=== PATIENT | male | born 1995 | race African-American/Black ===

== ENCOUNTER 2019-12-07 10:28 | Emergency (ER) | payer MEDICAID ==
[2019-12-07 10:41] VITALS: BP 129/87
--- NOTE | 2019-12-07 11:04 | ED Physician Documentation ---
PD HPI URI - Stated complaint Stated Complaint: CONGESTION/COUGH/RUNNY NOSE - Chief complaint Chief Complaint: Resp - History obtained from History obtained from: Patient - History of Present Illness Timing - onset: How many days ago (5) Timing duration: Days (5) Timing details: Gradual onset Associated symptoms: Nasal congestion, Rhinorrhea, Sore throat, Dry cough, Chest pain, Dyspnea. 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 He has been coughing not bringing anything up it feels like there is something rattling around in the left lung. He has not documented any fevers but he feels achy and sore. Appare ntly there are 8 people at [facility] who are residents that are sick and the facility is on quarantine. Review of Systems Constitutional: reports: Chills. denies: Fever Nose: reports: Rhinorrhea / runny nose, Congestion Throat: reports: Sore throat Respiratory: reports: Dyspnea, Cough GI: denies: Nausea, Vomiting PD PAST MEDICAL HISTORY - Past Medical History Past Medical History: No Cardiovascular: None Respiratory: Asthma Neuro: None Endocrine/Autoimmune: None GI: None : None HEENT: None Psych: None Musculoskeletal: None Derm: None - Past Surgical History Past Surgical History: No - Present Medications Home Medications: Ambulatory Orders Medication Instructions Recorded Confirmed No Known Home Medications 12/07/19 12/07/19 - Allergies Allergies/Adverse Reactions: Allergies Allergy/AdvReac Type Severity Reaction Status Date / Time No Known Drug Allergies Allergy Verified 12/07/19 10:38 - Social History Does the pt smoke?: No Smoking Status: Never smoker Does the pt drink ETOH?: No Does the pt have substance abuse?: No - Immunizations Immunizations are current?: Yes - POLST Patient has POLST: No PD ED PE NORMAL - Vitals Vital signs reviewed: Yes - General General: Alert and oriented X 3, No acute distress, Well developed/nourished - HEENT HEENT: Atraumatic, PERRL, EOMI, Moist mucous membranes, Pharynx benign, Other (Cerumen impaction bilaterally) - Neck Neck: Supple, no meningeal sign, No adenopathy - Cardiac Cardiac: RRR, No murmur - Respiratory Respiratory: No respiratory distress, Clear bilaterally - Derm Derm: Normal color, Warm and dry - Neuro Neuro: Alert and oriented X 3, No motor deficit, No sensory deficit, Normal speech Results - Vitals Vitals: Vital Signs - 24 hr 12/07/19 10:38 Temperature 37.3 C Heart Rate 100 Respiratory 18 Rate Blood Pressure 129/87 H O2 Saturation 100 Oxygen O2 Source Room air - Labs Labs: Laboratory Tests 12/07/19 12/07/19 11:09 11:09 Influenza A (Rapid) Negative Influenza B (Rapid) Negative RSV Rapid Negative PD MEDICAL DECISION MAKING - ED course Complexity details: reviewed results ED course: Influenza and RSV screens are negative. The patient's had a symptomatic upper respiratory infection and working in a halfway facility. I have run Covid 19 screening and instructed them that they are to be in self-isolation at home and not at work until the results of this test are known. Departure - Departure Disposition: 01 Home, Self Care Clinical Impression: Upper respiratory tract infection Qualifiers: URI type: unspecified viral URI Qualified Code(s): J06.9 - Acute upper respiratory infection, unspecified Condition: Good Instructions: ED Viral Syndrome Follow-Up: [facility] [Provider Group] Comments: Take [id number] Tylenol, ibuprofen and cold medications for your symptoms. You are to self isolate at home with no contact outside of the immediate family that you live with. You may not return to work until the results of your coronavirus screening are known. At this point in time that could be anywhere from 4 to 12 days before we have the results. Return for reevaluation only if you are experiencing severe respiratory distress. Forms: Activity restrictions
[2019-12-07 11:32] LABS: RESPIRATORY SYNCYTIAL VIRUS Negative (Negative)
== END 2019-12-07 12:41 | disposition home or self-care (01) ==
LOC: ED 10:28
DX: J06.9 Acute upper respiratory infection, unspecified (principal)
CPT/HCPCS: 81599; 87275; 87276; 87280; 99283; 99284

== ENCOUNTER 2020-10-05 14:17 | Emergency (ER) | payer MEDICAID ==
--- NOTE | 2020-10-05 14:32 | ED Physician Documentation ---
PD HPI HEENT - Stated complaint Stated Complaint: CONGESTION/LT SIDE PX - Chief complaint Chief Complaint: Resp - History obtained from History obtained from: Patient - Additional information Additional information: Productive cough with mild shortness of breath and feeling like the left lung is congested for about 3 weeks. Review of Systems Constitutional: denies: Fever, Chills, Myalgias Nose: denies: Rhinorrhea / runny nose Throat: denies: Sore throat PD PAST MEDICAL HISTORY - Past Medical History Cardiovascular: None Respiratory: Asthma Neuro: None Endocrine/Autoimmune: None GI: None : None HEENT: None Psych: None Musculoskeletal: None Derm: None - Past Surgical History Past Surgical History: No - Present Medications Home Medications: Ambulatory Orders Medication Instructions Recorded Confirmed Albuterol Sulf [Ventolin Hfa 1 - 2 puffs INH Q4HR PRN #1 inhaler 10/05/20 Inhaler] guaiFENesin/CODEINE [Robitussin AC] 5 - 10 ml PO Q6H PRN #120 ml 10/05/20 - Allergies Allergies/Adverse Reactions: Allergies Allergy/AdvReac Type Severity Reaction Status Date / Time No Known Drug Allergies Allergy Verified 10/05/20 14:21 - Social History Does the pt smoke?: No Smoking Status: Never smoker Does the pt drink ETOH?: No Does the pt have substance abuse?: No - Immunizations Immunizations are current?: Yes - POLST Patient has POLST: No PD ED PE NORMAL - Vitals Vital signs reviewed: Yes - General General: Alert and oriented X 3, No acute distress - Cardiac Cardiac: RRR, No murmur - Respiratory Respiratory: No respiratory distress, Clear bilaterally - Abdomen Abdomen: Non tender - Neuro Neuro: Alert and oriented X 3, Normal speech Results - Vitals Vitals: Vital Signs - 24 hr 10/05/20 14:18 Temperature 36.5 C Heart Rate 101 H Respiratory 20 Rate Blood Pressure 145/85 H O2 Saturation 100 Oxygen O2 Source Room air - Rads (name of study) 2v chest Radiology: EMP read contemporaneously (Normal) Departure - Departure Disposition: Home, Self Care Clinical Impression: Viral bronchitis Condition: Good Record reviewed to determine appropriate education?: Yes Instructions: ED Upper Resp Infec No Abx Tx Prescriptions: Albuterol Sulf [Ventolin Hfa Inhaler] 1 - 2 puffs INH Q4HR PRN #1 inhaler PRN Reason: Shortness Of Air/Wheezing guaiFENesin/CODEINE [Robitussin AC] 5 - 10 ml PO Q6H PRN #120 ml PRN Reason: Cough Comments: Follow-up with your doctor in about a week for recheck. Return for new or worsening symptoms. Avoid all inhaled substances, vaping/marijuana etc.
--- NOTE | 2020-10-05 14:47 | XRAY Report ---
PROCEDURE: Chest 2 View X-Ray INDICATIONS: cough TECHNIQUE: 2 view(s) of the chest. COMPARISON: None. FINDINGS: Surgical changes and devices: None. Lungs and pleura: No pleural effusions or pneumothorax. Lungs are clear. Mediastinum: Mediastinal contours are normal. Heart size is normal. Bones and chest wall: No suspicious bony abnormalities. Soft tissues appear unremarkable. IMPRESSION: No acute cardiopulmonary disease process. Reviewed by: Lu Tavera MD, PhD on 10/05/2020 1:46 PM [facility] Approved by: Lu Tavera MD, PhD on 10/05/2020 1:46 PM [facility] Station ID: [id number]
[2020-10-05 15:07] VITALS: BP 139/81
== END 2020-10-05 15:06 | disposition home or self-care (01) ==
LOC: ED 14:17
DX: J20.8 Acute bronchitis due to other specified organisms (principal); B97.89 Other viral agents as the cause of diseases classified elsewhere
CPT/HCPCS: 99283; 99284

== ENCOUNTER 2021-02-22 08:04 | Emergency (ER) | payer OTHER, MEDICAID ==
[2021-02-22 08:11] VITALS: BP 141/79
[2021-02-22] MEDS ORDERED: TETANUS/DIPHTHERIA/PERTUSSIS 0.5 ML SYRINGE IM ONE (09:23)
--- NOTE | 2021-02-22 09:23 | ED Physician Documentation ---
PD HPI UPPER EXT INJURY - Stated complaint Stated Complaint: LT THUMB LAC - Chief complaint Chief Complaint: Laceration - History obtained from History obtained from: Patient - History of Present Illness Location: Left, Finger (thumb) Type of injury: Laceration Where injury occurred: Work Pain level max: 2 Pain level now: 1 Improved by: Rest Worsened by: Moving - Additonal information Additional information: 25-year-old male presents to the emergency department for left thumb laceration. This occurred while at work today. Excellently cut with a knife. Better with pressure, worse with moving. Is not on any blood thinners. Unknown last tetanus. Patient is right-handed Review of Systems Constitutional: denies: Fever Neurologic: denies: Focal weakness, Numbness PD PAST MEDICAL HISTORY - Past Medical History Past Medical History: Yes Cardiovascular: None Respiratory: Asthma Neuro: None Endocrine/Autoimmune: None GI: None : None HEENT: None Psych: None Musculoskeletal: None Derm: None - Past Surgical History Past Surgical History: No - Present Medications Home Medications: Ambulatory Orders Medication Instructions Recorded Confirmed No Known Home Medications 02/22/21 02/22/21 - Allergies Allergies/Adverse Reactions: Allergies Allergy/AdvReac Type Severity Reaction Status Date / Time No Known Drug Allergies Allergy Verified 02/22/21 08:11 - Social History Does the pt smoke?: No Smoking Status: Never smoker Does the pt drink ETOH?: No Does the pt have substance abuse?: No - Immunizations Immunizations are current?: Yes - POLST Patient has POLST: No PD ED PE NORMAL - Vitals Vital signs reviewed: Yes - General General: Alert and oriented X 3, No acute distress - Derm Derm: Warm and dry - Extremities Extremities: Other (Small laceration to the distal aspect of the left thumb, this does involve about one fourth of the distal thumbnail. No active bleeding. Approximately 1.2 cm in total length. Neurovascular intact) - Neuro Neuro: Alert and oriented X 3 Results - Vitals Vitals: Vital Signs - 24 hr 02/22/21 08:08 Temperature 36.4 C L Heart Rate 92 Respiratory 16 Rate Blood Pressure 141/79 H O2 Saturation 97 Oxygen O2 Source Room air Procedures - Laceration (location) Left thumb Length in cm: 1.2 Wound type: Curved, Flap, Superficial Neurovascular status: Sensory intact, Motor intact, Vascular intact Tendon involvement: Tendon intact Wound preparation: Irrigated copiously NS Skin layer closure: Dermabond Other: Patient tolerated well, No complications, Neurovascular intact, Dressing applied, Tetanus booster given PD MEDICAL DECISION MAKING - ED course Complexity details: considered differential, d/w patient ED course: Patient with a left thumb laceration. Mostly superficial. Wound was cleansed, closed with Dermabond, the slight laceration through the distal nail was also closed with Dermabond. A splint was placed to protect the area from accidental bumping today. Tdap given. Patient counseled regarding signs and symptoms for which I believe and urgent re-evaluation would be necessary. Patient with good understanding of and agreement to plan and is comfortable going home at this time This document was made in part using voice recognition software. While efforts are made to proofread this document, sound alike and grammatical errors may occur. Departure - Departure Disposition: 01 Home, Self Care Clinical Impression: Thumb laceration Qualifiers: Encounter type: initial encounter Damage to nail status: with damage Foreign body presence: without foreign body Laterality: left Qualified Code(s): S61.112A - Laceration without foreign body of left thumb with damage to nail, initial encounter Condition: Good Instructions: ED Laceration Ext Skin Glue Follow-Up: your,doctor in 1 week for wound check [Other] Comments: Keep the wound clean. Return if you worsen. Keep the wound covered while at work. Do not apply ointment as this may dissolve the glue. You may remove the splint in 1 to 2 days.
== END 2021-02-22 09:38 | disposition home or self-care (01) ==
LOC: ED 08:04
DX: S61.112A Laceration without foreign body of left thumb with damage to nail, initial encounter (principal); W26.0XXA Contact with knife, initial encounter; Y99.0 Civilian activity done for income or pay; Z23 Encounter for immunization
CPT/HCPCS: 12001; 90471; 99282; 99283

== ENCOUNTER 2021-07-05 05:37 | Emergency (ER) | payer MEDICAID ==
[2021-07-05 05:45] VITALS: BP 142/86
--- NOTE | 2021-07-05 05:49 | ED Physician Documentation ---
PD HPI HEENT - Stated complaint Stated Complaint: EAR PRESSURE - Chief complaint Chief Complaint: Heent - History obtained from History obtained from: Patient - History of Present Illness Timing - onset: How many days ago (3) Timing - details: Gradual onset Pain level max: 0 Pain level now: 0 Location: Right ear, Left ear Similar symptoms before: Has not had sx before Recently seen: Not recently seen - Additional information Additional information: c/o 3 days of both ears are clogged (per patient). denies pain. denies fever. decreased hearing bilaterally Review of Systems Constitutional: denies: Fever Ears: reports: Loss of hearing (decreased bilaterally). denies: Ear pain, Drainage/discharge, Tinnitus/ringing Nose: reports: Congestion (mild) PD PAST MEDICAL HISTORY - Past Medical History Past Medical History: Yes Cardiovascular: None Respiratory: Asthma, Other Neuro: None Endocrine/Autoimmune: None GI: None : None HEENT: None Psych: None Musculoskeletal: None Derm: None Other Past Medical History: Bronchitis - Past Surgical History Past Surgical History: No - Present Medications Home Medications: Ambulatory Orders Medication Instructions Recorded Confirmed No Known Home Medications 02/22/21 07/05/21 - Allergies Allergies/Adverse Reactions: Allergies Allergy/AdvReac Type Severity Reaction Status Date / Time No Known Drug Allergies Allergy Verified 07/05/21 05:45 - Social History Does the pt smoke?: No Smoking Status: Never smoker Does the pt drink ETOH?: No Does the pt have substance abuse?: No - Immunizations Immunizations are current?: Yes - POLST Patient has POLST: No PD ED PE NORMAL - Vitals Vital signs reviewed: Yes - General General: Alert and oriented X 3, No acute distress, Well developed/nourished PD ED PE EXPANDED - HEENT HEENT: Other (bilateral ear canal cerumen impaction) Results - Vitals Vitals: Oxygen O2 Source Room air PD MEDICAL DECISION MAKING - ED course Complexity details: considered differential, d/w patient ED course: bilateral external auditory canals irrigated with warm tap water using 50cc syringe with attached 18g angiocath. extensive amount of cerumen removed, with both sides yielding in essence a wax cast of the external auditory canals. reexamination reveals normal and intact TM bilaterally, normal right external auditory canal, trace erythema left external auditory canal (limited to small patch along anterosuperior area). symptoms resolved upon removal of the cerumen Departure - Departure Disposition: 01 Home, Self Care Clinical Impression: Impacted cerumen of both ears Condition: Good Instructions: ED Wax Ear Home Removal, ED Earwax Removal Comments: Instructions for home ear wax removal have been provided only for your reference for future episodes should you have them. I was able to completely clear both ear canals of all cerumen (wax) and thus you do not need to use the product(s) referred to in the ear wax removal set of instructions unless you feel the problem is returning. Discharge Date/Time: 07/05/21 06:38
== END 2021-07-05 06:38 | disposition home or self-care (01) ==
LOC: ED 05:37
DX: H61.23 Impacted cerumen, bilateral (principal)
CPT/HCPCS: 99281; 99283

== ENCOUNTER 2021-08-12 08:18 | Emergency (ER) | payer OTHER, MEDICAID ==
[2021-08-12 08:30] VITALS: BP 132/68
--- NOTE | 2021-08-12 08:54 | ED Physician Documentation ---
PD HPI UPPER EXT INJURY - Stated complaint Stated Complaint: LT PINKY LAC - Chief complaint Chief Complaint: Laceration - History obtained from History obtained from: Patient - History of Present Illness Location: Left, Finger (5th digit) Type of injury: Laceration Where injury occurred: Home Timing - onset: How many minutes ago (30) Timing - duration: Minutes (30) Timing - details: Abrupt onset Pain level max: 3 Pain level now: 2 Improved by: Rest Worsened by: Moving, Palpating Associated symptoms: No: Weakness, Numbness, Tingling, Swelling Recently seen: Not recently seen Review of Systems Constitutional: denies: Fever, Chills GI: denies: Vomiting, Diarrhea Skin: denies: Rash Musculoskeletal: denies: Neck pain, Back pain Neurologic: denies: Headache PD PAST MEDICAL HISTORY - Past Medical History Past Medical History: Yes Cardiovascular: None Respiratory: Asthma, Other Neuro: None Endocrine/Autoimmune: None GI: None : None HEENT: None Psych: None Musculoskeletal: None Derm: None - Past Surgical History Past Surgical History: No - Present Medications Home Medications: Ambulatory Orders Medication Instructions Recorded Confirmed No Known Home Medications 02/22/21 07/05/21 - Allergies Allergies/Adverse Reactions: Allergies Allergy/AdvReac Type Severity Reaction Status Date / Time No Known Drug Allergies Allergy Verified 07/05/21 05:45 - Social History Does the pt smoke?: No Smoking Status: Never smoker Does the pt drink ETOH?: No Does the pt have substance abuse?: No - Immunizations Immunizations are current?: Yes - POLST Patient has POLST: No PD ED PE NORMAL - Vitals Vital signs reviewed: Yes - General General: Alert and oriented X 3, No acute distress - HEENT HEENT: Moist mucous membranes - Respiratory Respiratory: No respiratory distress - Derm Derm: Warm and dry - Extremities Extremities: Other (L 5th digit. flap laceration distal tip. NVI. skin is pale/white on the flap. no bleeding. no bone exposure) - Neuro Neuro: Alert and oriented X 3 - Psych Psych: Normal mood, Normal affect Results - Vitals Vitals: Vital Signs - 24 hr 08/12/21 08:27 Temperature 36.5 C Heart Rate 99 Respiratory 16 Rate Blood Pressure 132/68 H O2 Saturation 99 Oxygen O2 Source Room air Procedures - Laceration (location) L 5th digit Length in cm: 1 Wound type: Curved, Flap, Into subcut fat, Clean Neurovascular status: Sensory intact, Motor intact, Vascular intact Tendon involvement: Tendon intact Wound preparation: Irrigated copiously NS Skin layer closure: Dermabond Other: Patient tolerated well, No complications, Neurovascular intact, Dressing applied, Tetanus UTD PD MEDICAL DECISION MAKING - ED course Complexity details: considered differential, d/w patient ED course: Patient with a distal fingertip injury. There is a small flap. Dermabond was used to readhere the flap. finger splint applied to protect the finger tip. Patient counseled that this will act as a biological dressing, this skin may not be salvageable and may necrose off. Warnings of infection and instructions on wound care given at bedside. Also counseled on how to minimize scarring. Patient counseled regarding signs and symptoms for which I believe and urgent re-evaluation would be necessary. Patient with good understanding of and agreement to plan and is comfortable going home at this time This document was made in part using voice recognition software. While efforts are made to proofread this document, sound alike and grammatical errors may occur. Departure - Departure Disposition: 01 Home, Self Care Clinical Impression: Finger laceration Qualifiers: Encounter type: initial encounter Finger: little finger Damage to nail status: without damage Foreign body presence: without foreign body Laterality: left Qualified Code(s): S61.217A - Laceration without foreign body of left little finger without damage to nail, initial encounter Condition: Good Instructions: ED Laceration Ext Skin Glue Follow-Up: your,doctor in 1 week for wound check [Other] Comments: As we discussed, the tip of the finger may turn black, fall off and . For now it is acting as a biological dressing. It may readhere itself as well. Do not apply ointment as this will dissolve the glue. Wear the splint for the next 2 to 3 days help protect the area. Return if you worsen. Return especially for redness, swelling or drainage from the wound. Discharge Date/Time: 08/12/21 09:30
== END 2021-08-12 09:30 | disposition home or self-care (01) ==
LOC: ED 08:18
DX: S61.217A Laceration without foreign body of left little finger without damage to nail, initial encounter (principal); W45.8XXA Other foreign body or object entering through skin, initial encounter; Y93.G1 Activity, food preparation and clean up; Y92.009 Unspecified place in unspecified non-institutional (private) residence as the place of occurrence of the external cause
CPT/HCPCS: 12001; 99282

== ENCOUNTER 2021-08-21 10:28 | Emergency (ER) | payer OTHER, MEDICAID ==
[2021-08-21 10:41] VITALS: BP 129/74
--- NOTE | 2021-08-21 10:59 | ED Physician Documentation ---
PD HPI WOUND RECHECK - Stated complaint Stated Complaint: FINGER LAC - Chief complaint Chief Complaint: Laceration - Histroy obtained from History obtained from: Patient - History of Present Illness Location: Left Hand, Other (pinky finger tip) Timing - onset: How many days ago (9) Associated symptoms: Other (black tip). No: Pain Similar symptoms before: Has not had sx before Recently seen: Emergency Dept - Additional information Additional information: 26-year-old male cut the tip of his left pinky finger off with a nonviable flap and the flap was reattached and has not taken. This was suspected to be the course at the time of treatment. The patient presents to the emergency department today for evaluation stating that he just wanted to have his finger looked at to make sure this was really what it was supposed look like.He denies any pain specifically denies any drainage from this denies any redness or pain elsewhere in the rest of his hand.He has been able to return to work he just had to be careful about using his left hand. Review of Systems Constitutional: denies: Fever Respiratory: denies: Cough GI: denies: Vomiting Skin: denies: Rash Musculoskeletal: denies: Neck pain, Back pain, Extremity pain PD PAST MEDICAL HISTORY - Past Medical History Past Medical History: Yes Cardiovascular: None Respiratory: Asthma, Other Neuro: None Endocrine/Autoimmune: None GI: None : None HEENT: None Psych: None Musculoskeletal: None Derm: None - Past Surgical History Past Surgical History: No - Present Medications Home Medications: Ambulatory Orders Medication Instructions Recorded Confirmed No Known Home Medications 02/22/21 08/21/21 - Allergies Allergies/Adverse Reactions: Allergies Allergy/AdvReac Type Severity Reaction Status Date / Time No Known Drug Allergies Allergy Verified 07/05/21 05:45 - Social History Does the pt smoke?: No Smoking Status: Never smoker Does the pt drink ETOH?: No Does the pt have substance abuse?: No - Immunizations Immunizations are current?: Yes - POLST Patient has POLST: No PD ED PE NORMAL - Vitals Vital signs reviewed: Yes (Normal) - General General: Alert and oriented X 3, No acute distress, Well developed/nourished - HEENT HEENT: Atraumatic, PERRL, EOMI - Respiratory Respiratory: No respiratory distress - Derm Derm: Normal color, Warm and dry, No rash - Extremities Extremities: No deformity, No edema, Other (The tip of the left pinky finger is necrotic it is still adhered to the tip of the finger. There is no erythema or swelling proximal to this.) - Neuro Neuro: Alert and oriented X 3, certified first assistant 2-12 intact, No motor deficit, No sensory deficit, Normal speech Eye Opening: Spontaneous Motor: Obeys Commands Verbal: Oriented GCS Score: 15 - Psych Psych: Normal mood, Normal affect Results - Vitals Vitals: Vital Signs - 24 hr 08/21/21 10:39 Temperature 36.1 C L Heart Rate 73 Respiratory 16 Rate Blood Pressure 129/74 O2 Saturation 100 Oxygen O2 Source Room air PD MEDICAL DECISION MAKING - ED course Complexity details: considered differential, d/w patient ED course: 26-year-old male with a necrotic tip to the left pinky finger has essentially a biologic dressing in place I have discussed with this with the patient again today have I have reassured the patient that despite the dramatic appearance of this this will resolve and the finger will heal underneath this. Eventually this will fall off and this may take anywhere between 1 and 3 weeks. Departure - Departure Disposition: 01 Home, Self Care Clinical Impression: Traumatic amputation of finger tip Qualifiers: Encounter type: subsequent encounter Qualified Code(s): S68.119D - Complete traumatic metacarpophalangeal amputation of unspecified finger, subsequent encounter Condition: Stable Instructions: ED Avulsion Dermal Follow-Up: [facility] [Provider Group] Comments: Lorne, today it looks like the tip of your finger is necrotic and this was expected at the time of initial treatment. There is no evidence of infection to this area and this blackened area of the tip of your finger will eventually fall off. It may take 1 to 3 weeks. The skin underneath has begun to heal already. This should not be painful and may have some mild bleeding. Redness swelling and pain are reason to return to see us.
== END 2021-08-21 11:06 | disposition home or self-care (01) ==
LOC: ED 10:28
DX: I96 Gangrene, not elsewhere classified (principal); S68.627D Partial traumatic transphalangeal amputation of left little finger, subsequent encounter; W26.0XXD Contact with knife, subsequent encounter
CPT/HCPCS: 99281; 99282

== ENCOUNTER 2022-08-29 05:58 | Emergency (ER) | payer MEDICAID ==
[2022-08-29 06:18] VITALS: BP 133/69
--- NOTE | 2022-08-29 08:34 | XRAY Report ---
PROCEDURE: Chest 1 View X-Ray INDICATIONS: cough TECHNIQUE: One view of the chest was acquired. COMPARISON: None. FINDINGS: Surgical changes and devices: None. Lungs and pleura: No pleural effusions or pneumothorax. Lungs are clear. Mediastinum: Mediastinal contours appear normal. Heart size is normal. Bones and chest wall: No suspicious bony lesions. Overlying soft tissues appear unremarkable. IMPRESSION: No acute cardiopulmonary pathology. Reviewed by: Jose Manuel Alcazar MD on 08/29/2022 8:33 AM [facility] Approved by: Jose Manuel Alcazar MD on 08/29/2022 8:33 AM [facility] Station ID: [id number]
== END 2022-08-29 10:05 | disposition left against medical advice (07) ==
LOC: ED 05:58
DX: J02.9 Acute pharyngitis, unspecified (principal); R05.9 Cough, unspecified; Z53.21 Procedure and treatment not carried out due to patient leaving prior to being seen by health care provider

== ENCOUNTER 2023-06-18 10:32 | Emergency (ER) | payer MEDICAID ==
[2023-06-18 10:42] VITALS: BP 139/75; O2SAT 98
--- NOTE | 2023-06-18 11:21 | ED Physician Documentation ---
History of Present Illness - Stated complaint Stated Complaint: CONGESTION/LT EAR CLOGGED - Chief complaint Chief Complaint: Heent - Additonal information Additional information: Here for impacted wax in his left ear causing muffled hearing for about a week. Tried using half-strength hydrogen peroxide and Q-tips with no relief. Denies ear pain or URI symptoms Review of Systems Constitutional: denies: Fever Ears: reports: Loss of hearing, Other (Cerumen impaction). denies: Drainage/discharge Nose: reports: Reviewed and negative Throat: reports: Reviewed and negative PD PAST MEDICAL HISTORY - Past Medical History Cardiovascular: None Respiratory: Asthma, Other Neuro: None Endocrine/Autoimmune: None GI: None : None HEENT: None Psych: None Musculoskeletal: None Derm: None - Past Surgical History Past Surgical History: No - Present Medications Home Medications: Ambulatory Orders Medication Instructions Recorded Confirmed No Known Home Medications 02/22/21 06/18/23 - Allergies Allergies/Adverse Reactions: Allergies Allergy/AdvReac Type Severity Reaction Status Date / Time No Known Drug Allergies Allergy Verified 08/29/22 06:15 - Social History Does the pt smoke?: No Smoking Status: Never smoker Does the pt drink ETOH?: No Does the pt have substance abuse?: No - Immunizations Immunizations are current?: Yes - POLST Patient has POLST: No PD ED PE NORMAL - HEENT HEENT: Other (Both ears with 100% impaction of Ear canals. The left ear was gently rinsed multiple times with warm water removing the impaction fully. No evidence of TM perforation or swimmer's ear following.) Results - Vitals Vitals: Vital Signs - 24 hr 06/18/23 10:35 Temperature 36.6 C Heart Rate 84 Respiratory 16 Rate Blood Pressure 139/75 H O2 Saturation 98 Oxygen O2 Source Room air PD Medical Decision Making - ED course Complexity details: d/w patient ED course: Cerumen impaction of the left ear which is causing muffled hearing was removed at the bedside using gentle warm water flush. The right ear was not addressed as it was not symptomatic. We discussed routine care measures for impacted cerumen at home as well as the usual emergent return precautions Departure - Departure Disposition: 01 Home, Self Care Clinical Impression: Impacted cerumen of left ear Condition: Stable Record reviewed to determine appropriate education?: Yes Instructions: ED Wax Ear Home Removal Comments: Lorne we gently rinsed the wax out of your left ear with warm water at the bedside. I would recommend that you use half-strength hydrogen peroxide solution or buy Debrox solution at the pharmacy to use in your ears to really reduce the impacted cerumen every few months. Return to the emergency department if you are having worsening symptoms fevers milky drainage or ear pain.
== END 2023-06-18 11:26 | disposition home or self-care (01) ==
LOC: ED 10:32
DX: H61.22 Impacted cerumen, left ear (principal)
CPT/HCPCS: 69209; 99281; 99282

== ENCOUNTER 2023-09-07 09:40 | Emergency (ER) | payer MEDICAID ==
--- NOTE | 2023-09-07 11:12 | ED Physician Documentation ---
PD HPI UPPER EXT INJURY - Stated complaint Stated Complaint: RT HAND LAC - Chief complaint Chief Complaint: Laceration - History obtained from History obtained from: Patient - Additonal information Additional information: Patient is a 28-year-old male presenting for evaluation of a laceration to his right hand that occurred just prior to arrival. Patient was at work at [employer] and excellently cut himself on the serrated edge of an aluminum foil box. He does not take a blood thinner. His last tetanus is in 2020. He states he would not of come here if it was not for his work making him come. Review of Systems Skin: reports: Laceration (s) Musculoskeletal: denies: Extremity pain PD PAST MEDICAL HISTORY - Past Medical History Past Medical History: Yes Cardiovascular: None Respiratory: Asthma, Other Neuro: None Endocrine/Autoimmune: None GI: None : None HEENT: None Psych: None Musculoskeletal: None Derm: None - Past Surgical History Past Surgical History: No - Present Medications Home Medications: Ambulatory Orders Medication Instructions Recorded Confirmed No Known Home Medications 02/22/21 06/18/23 - Allergies Allergies/Adverse Reactions: Allergies Allergy/AdvReac Type Severity Reaction Status Date / Time No Known Drug Allergies Allergy Verified 09/07/23 09:45 - Social History Does the pt smoke?: No Smoking Status: Never smoker Does the pt drink ETOH?: No Does the pt have substance abuse?: No - Immunizations Immunizations are current?: Yes - POLST Patient has POLST: No PD ED PE NORMAL - General General: Alert and oriented X 3, No acute distress, Well developed/nourished - HEENT HEENT: Atraumatic - Respiratory Respiratory: No respiratory distress - Extremities Extremities: Other (1 cm laceration on the dorsum of the right hand between third and fourth MCP joints, very superficial with no gaping even with range of motion, normal range of motion at all joints, no bleeding) PD ED PE EXPANDED - Extremities SHERMAN UE/Hands Visual: 1 - laceration Results - Vitals Vitals: Vital Signs - 24 hr 09/07/23 09/07/23 09:43 11:28 Temperature 36.6 C Heart Rate 91 87 Respiratory 20 15 Rate Blood Pressure 139/83 H 132/79 H O2 Saturation 97 100 Oxygen O2 Source Room air Procedures - Laceration (location) R hand Length in cm: 1 Wound type: Linear, Superficial, Clean Wound preparation: Hibiclens, Irrigated copiously NS Skin layer closure: Dermabond Other: Patient tolerated well, No complications, Neurovascular intact, Tetanus UTD PD Medical Decision Making - ED course ED course: Patient with superficial laceration to his right hand. Wound is not gaping or bleeding and I do not think it requires stitches at this time. Patient's tetanus is already up-to-date. Layer of Dermabond was applied to the wound. normal range of motion Of digits of affected hand. Patient counseled on continued wound care as well as concerning symptoms to return for. Departure - Departure Disposition: 01 Home, Self Care Clinical Impression: Laceration of right hand Condition: Stable Instructions: ED Laceration Ext Skin Glue Comments: You have a small superficial laceration over your right hand that is not gaping and does not require stitches. I have applied some skin glue to help protect this while it heals. Please keep the wound clean and dry. Return to the ER with any concerns. Forms: PCP List, Activity restrictions Discharge Date/Time: 09/07/23 11:29
[2023-09-07 11:35] VITALS: BP 132/79; O2SAT 100
== END 2023-09-07 11:29 | disposition home or self-care (01) ==
LOC: ED 09:40
DX: S61.411A Laceration without foreign body of right hand, initial encounter (principal); W26.8XXA Contact with other sharp object(s), not elsewhere classified, initial encounter; Y92.89 Other specified places as the place of occurrence of the external cause; Y99.0 Civilian activity done for income or pay
CPT/HCPCS: 12001; 99281

== ENCOUNTER 2024-01-19 09:40 | Emergency (ER) | payer MEDICAID, OTHER ==
[2024-01-19 09:49] VITALS: BP 148/82; O2SAT 100
--- NOTE | 2024-01-19 10:05 | ED Physician Documentation ---
PD HPI MALE - Stated complaint Stated Complaint: - Chief complaint Chief Complaint: General - History obtained from History obtained from: Patient - Additional information Additional information: Patient is a 28-year-old male without significant past medical history presenting for evaluation of discoloration to his penis that he has noticed for the last 2 days. He denies any discomfort. Denies dysuria or penile discharge. Denies lesions elsewhere.Denies trauma. Denies pain in the testicles. Review of Systems Cardiac: denies: Chest pain / pressure Respiratory: denies: Dyspnea GI: denies: Abdominal Pain : denies: Dysuria, Testicular pain PD PAST MEDICAL HISTORY - Past Medical History Cardiovascular: None Respiratory: Asthma, Other Neuro: None Endocrine/Autoimmune: None GI: None : None HEENT: None Psych: None Musculoskeletal: None Derm: None - Past Surgical History Past Surgical History: No - Present Medications Home Medications: Ambulatory Orders Medication Instructions Recorded Confirmed No Known Home Medications 02/22/21 01/19/24 - Allergies Allergies/Adverse Reactions: Allergies Allergy/AdvReac Type Severity Reaction Status Date / Time No Known Drug Allergies Allergy Verified 01/19/24 09:47 - Social History Does the pt smoke?: No Smoking Status: Never smoker Does the pt drink ETOH?: No Does the pt have substance abuse?: No Substance Use and Type: Marijuana - Immunizations Immunizations are current?: Yes - POLST Patient has POLST: No PD ED PE NORMAL - General General: Alert and oriented X 3, No acute distress, Well developed/nourished - HEENT HEENT: Atraumatic - Respiratory Respiratory: No respiratory distress - Abdomen Abdomen: Normal bowel sounds, Soft, Non tender, Non distended - 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 vaginalis (PCR) NEGATIVE PD Medical Decision Making - ED course ED course: Patient presenting for evaluation of purple discoloration to his penis. On exam appears to have dark appearance to the coronal margin of the penis. However there is no tenderness and coloring is not atypical for patient's ethnicity.Denies other symptoms to suggest STI.However he did ask for screening for gonorrhea and chlamydia which we have done. Patient counseled on concerning symptoms to return for. Departure - Departure Disposition: 01 Home, Self Care Clinical Impression: Screening examination for STI Condition: Stable Instructions: STDs Comments: The discoloration that you have noticed on your penis at this time does not appear to be an infection. I request we have sent your urine to test for sexually transmitted infection such as gonorrhea and chlamydia and I will notify you if these are abnormal. Return to the ER if you develop any worsening symptoms such as pain or swelling or abnormal discharge. Forms: PCP List Discharge Date/Time: 01/19/24 10:17
[2024-01-19 13:47] LABS: CHLAMYDIA TRACHOMATIS DNA NEGATIVE (NEGATIVE); NEISSERIA GONORRHOEAE DNA NEGATIVE (NEGATIVE); TRICHOMONAS VAGINALIS DNA NEGATIVE (NEGATIVE)
== END 2024-01-19 10:17 | disposition home or self-care (01) ==
LOC: ED 09:40
DX: Z11.3 Encounter for screening for infections with a predominantly sexual mode of transmission (principal)
CPT/HCPCS: 87491; 87591; 87661; 99283